=== PATIENT | male | born 2000 | race Caucasian/White ===

== ENCOUNTER 2020-05-07 09:41 | Day surgery (SDC) | payer BC ==
[2020-05-07 10:23] LABS: #Eosinphils 0.1 thou/uL (0.0-0.7); #Lymphocytes 1.9 thou/uL (1.20-3.40); #Monocytes 0.4 thou/uL (0.11-0.59); %Basophils 0.3 % (0.0-1.0); %Eosinophils 0.9 % (0.0-10.0); %Lymphocytes 20.3 % (28.0-48.0); %Monocytes 4.2 % (0.0-4.0); %Neutrophils 74.3 % (31.0-61.0); Hemoglobin 15.9 g/dL (14.0-18.0); Mean Corpuscular HGB CONC 34.1 g/dL (32.0-36.0); Mean Corpuscular Hemoglobin 29.5 pg (25.0-35.0); Mean Corpuscular Volume 86.5 fL (78.0-98.0); Mean Platelet Volume 6.8 fL (7.4-10.4); Platelet Count 264 thou/uL (130-400); Red Blood Cell (RBC) Count 5.38 mill/uL (4.00-5.20); White Blood Cell (WBC) Count 9.4 thou/uL (4.8-10.8)
[2020-05-07 10:50] LABS: ALT (SGPT) 15 U/L (8-55); AST (SGOT) 24 U/L (5-34); Albumin 4.8 g/dL (3.5-5.0); Alkaline Phosphatase 148 U/L (50-130); Anion Gap 20 mmol/L (10-20); BUN (Urea Nitrogen) 12 mg/dL (8.9-20.6); Bilirubin, Total 0.8 mg/dL (0.2-1.2); Calc. Creatinine Clearance 0 mL/min (70-130); Calcium 9.4 mg/dL (7.8-10.44); Carbon Dioxide 23 mmol/L (22-29); Chloride 102 mmol/L (98-107); Globulin 3.3 g/dL (2.4-3.5); Glucose 95 mg/dL (70-105); Lipase 7 U/L (8-78); Potassium 4.3 mmol/L (3.5-5.1); Protein, Total 8.1 g/dL (6.0-8.3); Sodium 141 mmol/L (136-145)
[2020-05-07] MEDS ORDERED: Morphine 4 MG/ML VIAL ONE (11:43)
[2020-05-07] MEDS ORDERED: Ondansetron PF 4 MG/2 ML Vial ONE ×2 (11:43→14:56)
[2020-05-07] MEDS ORDERED: Iopamidol-370 76% 500 ML 1 ML ONE (12:16)
--- NOTE | 2020-05-07 12:41 | CT ---
CT ABDOMEN AND PELVIS WITH IV CONTRAST: HISTORY: Epigastric abdominal pain FINDINGS: The lung bases are clear. No calcified gallstones are seen. The liver, spleen, pancreas, adrenal glan ds and kidneys are normal. No free air, free fluid or lymphadenopathy seen in the abdomen or pelvis. No acute osseous abnormalities are seen. The small bowel loops are not abnormally dilated. The appendix is mildly dilated and fluid-filled wit hout significant periappendiceal inflammatory changes. IMPRESSION: Possibility of early/developing appendicitis should be considered.
[2020-05-07 13:30] LABS: Bilirubin Negative (Negative); Blood, Urine Negative (Negative); Clarity Clear (Clear); Glucose, Urine (Dipstick) Normal (Negative); Ketone, Urine 150 mg/dL (Negative); Leukocyte Negative Leu/uL (Negative); Nitrite Negative (Negative); Protein, Urine (Dipstick) 10 mg/dL (Neg-Trace); Urobilinogen Normal mg/dL (Less than 2); pH, Urine 5.5 (5.0-9.0)
[2020-05-07 13:32] LABS: Specific Gravity, Urine Greater than 1.060 (1.002-1.036)
[2020-05-07] MEDS ORDERED: cefOXitin Sodium/Dextrose,Iso 2 GM in Premix Bag 1 BAG IVPB SCH (13:45)
--- NOTE | 2020-05-07 14:27 | HP ---
HISTORY OF PRESENT ILLNESS: Mr. Dillard is a 19-year-old young man, presented to emergency department today with insidious onset periumbilical abdominal pain, which started at 0600 hours. Pain has settled in the right lower quadrant since. Pain is associated with episodes of nausea, but no emesis. He denies any fevers or chills. He rates his pain at 7/10. Pain does not radiate. PAST MEDICAL HISTORY: Denies any previous medical problems. PAST SURGICAL HISTORY: He has had no previous surgeries. SOCIAL HISTORY: He is single, lives independently. 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 He smokes 1 or 2 cigarettes occasionally. He also admits to occasional intake of ethanol in moderate amounts. He denies any illicit drug abuse. CURRENT MEDICATIONS: None. ALLERGIES: THE PATIENT DENIES ANY KNOWN DRUG ALLERGIES. FAMILY HISTORY: Denies any family history of diabetes mellitus, hypertension, heart disease, or cancer. REVIEW OF SYSTEMS: Ten-point review of systems essentially unremarkable except as stated in past medical history and chief complaint. PHYSICAL EXAMINATION: GENERAL: This reveals a 19-year-old normally developed man, who is otherwise coherent and interactive and appears stated age. The patient is alert and oriented x3, appears to be in no acute distress at time of my evaluation. HEENT: Normocephalic and atraumatic. Pupils are equal, round, and reactive to light and accommodation. HEART: Reveals regular rate and rhythm. No murmurs or gallops auscultated. LUNGS: Clear to auscultation bilaterally. His breathing is regular and nonlabored. ABDOMEN: Soft and nondistended. He has right lower quadrant tenderness at McBurney's. He has a positive Rovsing sign. Liver and spleen otherwise nonpalpable below costal margins. NEUROLOGIC: Reveals no focal deficits present. LABORATORY FINDINGS: Include a CBC with 9400 white blood cells, hemoglobin and hematocrit are 15.9 and 46.6 respectively, platelet count is 264,000. Metabolic profile; sodium is 141, potassium 4.3, chloride is 102, bicarb is 23, BUN is 12, creatinine is 1.12, glucose 95, total bilirubin 0.8, AST and ALT are 24 and 15 respectively, alkaline phosphatase 148. Serum lipase is normal at 7. I have personally reviewed the CT scan of the abdomen and pelvis remarkable for dilated fluid-filled appendix. No significant periappendiceal fat stranding. No pneumoperitoneum present. IMPRESSION: Acute appendicitis. RECOMMENDATIONS AND PLAN: Laparoscopic appendectomy. Above findings and recommendations have been discussed with the patient in the presence of his nurse. I have advised the patient of the risks and benefits of the proposed surgery to include, but not limited to bleeding, infection, injury to bowel or surrounding structures. He indicates understanding information provided. I have answered his questions. The patient has granted consent for this admission and surgical intervention. Job ID: [id number]
[2020-05-07] MEDS ORDERED: XYLOCAINE 2%-EPI 1:100,000 20 ML VIAL ONE (14:44)
[2020-05-07] MEDS ORDERED: Bupivacaine 0.25% HCL 30 ML VIAL ONE (14:44)
[2020-05-07 14:56] LABS: SARS-CoV-2 NAA Rapid Test Not Detected (NotDetected)
[2020-05-07] MEDS ORDERED: Dexamethasone 20 MG/5 ML VIAL ONE (14:56)
[2020-05-07] MEDS ORDERED: Glycopyrrolate 0.2 MG/ML 5 ML SYRINGE ONE (14:56)
[2020-05-07] MEDS ORDERED: Ketorolac Tromethamine 30 MG/ML VIAL ONE (14:56)
[2020-05-07] MEDS ORDERED: Succinylcholine 200 MG/10 ml SYRINGE FS ONE (14:56)
[2020-05-07] MEDS ORDERED: PROPOFOL 200 MG/20 ML VIAL ONE (14:56)
[2020-05-07] MEDS ORDERED: Lidocaine 1% PF 5 ML VIAL ONE (14:56)
[2020-05-07] MEDS ORDERED: Rocuronium Bromide 10 MG/ML (10ML VIAL) ONE (14:56)
[2020-05-07] MEDS ORDERED: Fentanyl 100 MCG/2 ML VIAL ONE (15:06)
[2020-05-07] MEDS ORDERED: cefOXitin 2 GM in Sodium Chloride 0.9% 100 ML IVPB SCH (15:15)
[2020-05-07] MEDS ORDERED: cefOXitin Sodium/Dextrose 2 GM/50 ML BAG ONE (15:22)
[2020-05-07] MEDS ORDERED: Sodium Chloride 0.9% 0 ML ONE ×2 (15:22)
[2020-05-07] MEDS ORDERED: ceFOXitin 1 GM VIAL ONE (15:22)
[2020-05-07] MEDS ORDERED: Meperidine HCl/PF 25 MG/ML VIAL ONE (16:22)
--- NOTE | 2020-05-07 16:42 | OP ---
DATE OF PROCEDURE: 05/07/2020 PREOPERATIVE DIAGNOSIS: Acute appendicitis. POSTOPERATIVE DIAGNOSIS: Acute appendicitis. OPERATION PERFORMED: Laparoscopic appendectomy. ANESTHESIA: General endotracheal. ESTIMATED BLOOD LOSS: 5 mL. FLUIDS GIVEN: 1000 mL of crystalloids. COUNTS: Sponge and instrument counts were verified as correct x2. COMPLICATIONS: None apparent at the time of operation. INDICATIONS FOR OPERATION: A 19-year-old young man presented with insidious onset of periumbilical abdominal pain, which soon settled in the right lower quadrant. Clinical and radiographic examination were consistent with acute appendicitis, for which the patient was brought to the operating room for appendectomy. Findings are consistent with inflamed, dilated appendix. No evidence of perforation. DESCRIPTION OF PROCEDURE: Informed consent obtained from the patient. He was brought to the operating room and placed in supine position. Following general anesthesia, abdomen was sterilely prepped and draped in the usual fashion. The skin below the umbilicus was infiltrated with 0.25% Marcaine with epinephrine. A small curvilinear infraumbilical incision was made using an 11 scalpel. Umbilical stalk was grasped with Jose Carlos and elevated. Veress needle was inserted through the incision and placed in the peritoneal cavity, through which the abdomen was insufflated with 2.5 L of CO2 gas. Intraabdominal pressure noted at 2 mmHg. Following abdominal insufflation, Veress needle was removed and a 5 mm trocar introduced using a Visiport under laparoscopy. Laparoscopy confirmed proper placement of the port. No injuries to underlying structures. Additional laparoscopy reveals the right lower quadrant partially obscured by omental adhesions. Under direct laparoscopy, two 5-mm suprapubic and left lower quadrant ports were placed after the overlying skin were infiltrated with 0.25% Marcaine with epinephrine. Appropriate incision was made. The patient was placed in a Trendelenburg position, rotated to his left. I introduced a Prestige grasper through the left lower quadrant port site, using this to bluntly take down omental adhesions to reveal a dilated retrocecal appendix. This was grasped with an Endo Paulina forceps through the suprapubic port site and elevated. I created a rent through the mesoappendix at the base using the LigaSure device. The mesoappendix was then serially divided using LigaSure with good hemostasis. The appendix itself was divided at the appendicocecal junction between endo-loops and delivered of the abdominal cavity using an EndoCatch. Operative site was inspected for good hemostasis. I then ran the distal ileum from the ileocecal junction to proximal 2 feet, finding no Meckel diverticulum. Finding no other pathology, laparoscopy was terminated. Fascia of the left lower quadrant port was closed using 0 Vicryl suture on a UR6 under direct vision. The abdomen was desufflated. All ports and instruments were removed and accounted for. Skin incisions were closed using 4-0 Monocryl suture in subcuticular fashion. Dermabond was applied over incisional closure. The patient tolerated this operation without any apparent complication and was returned to recovery room in satisfactory condition. Job ID: [id number]
== END 2020-05-07 18:55 | disposition home or self-care (01) ==
LOC: ERS 09:41 → SDC 15:20
PROVIDERS: ATTEND Surgery
PROC: 0DTJ4ZZ Resection of Appendix, Percutaneous Endoscopic Approach (ICD-10-PCS; principal; 2020-05-07)
DX: K35.80 Unspecified acute appendicitis (principal); F17.210 Nicotine dependence, cigarettes, uncomplicated; J45.909 Unspecified asthma, uncomplicated; Z20.822 Contact with and (suspected) exposure to COVID-19
CPT/HCPCS: 36415; 74177; 80053; 81003; 83690; 85025; 88304; 96374; 96375; J0694; J1100; J1885; J2175; J2270; J2405; J2704; J3010; J3490; Q9967; S0020; U0002